=== PATIENT | male | born 1980 | race African-American/Black ===

== ENCOUNTER 2017-07-11 16:17 | Emergency (ER) | payer OTHER ==
[~2017-07-11] VITALS: Ht 180.3 cm; Wt 81.0 kg
[~2017-07-11 16:17] MED LIST: ASPI-1079 PO; CARV10CP PO; DIGO250T81 PO; ENAL5TAB PO; FURO-151 PO; KDUR10 PO; LOSA50TA20 PO; SPIR25TA PO; TRAM50TA3 PO
[2017-07-11] MEDS ORDERED: IBUPROFEN 600MG TABLET PO ONE (20:45)
[2017-07-11 21:06] VITALS: BP 132/76
== END 2017-07-11 21:11 | disposition home or self-care (01) ==
LOC: ER 18:40
DX: M54.5 Low back pain (principal); M54.2 Cervicalgia; R51 Headache; J45.909 Unspecified asthma, uncomplicated; I10 Essential (primary) hypertension; F17.210 Nicotine dependence, cigarettes, uncomplicated; V49.9XXA Car occupant (driver) (passenger) injured in unspecified traffic accident, initial encounter; Y93.89 Activity, other specified; Y92.89 Other specified places as the place of occurrence of the external cause; Y99.8 Other external cause status
CPT/HCPCS: 70450; 70486; 72100; 72125; 99284

== ENCOUNTER 2018-07-02 11:30 | Emergency (ER) | payer OTHER ==
[~2018-07-02] VITALS: Ht 180.3 cm; Wt 100.0 kg
[2018-07-02 13:13] LABS: BASOPHILS % 0.4 % (0.0-2.0); EOSINOPHILS % 3.9 % (0.0-5.0); HEMATOCRIT. 37.9 % (42.0-52.0); HEMOGLOBIN. 12.8 g/dL (14.0-18.0); LYMPHOCYTES % 25.1 % (20.0-50.0); MEAN CORPUSCULAR HEMOGLOBIN 28.1 pg (28.0-32.0); MEAN CORPUSCULAR VOLUME 83.3 fL (80.0-94.0); MONOCYTES % 10.1 % (2.0-8.0); NEUTROPHILS % 60.5 % (40.0-76.0); PLATELET 162 x1000/uL (130-400); RED BLOOD CELL COUNT 4.55 mill/uL (4.7-6.1); RED CELL DISTRIBUTION WIDTH 14.7 % (11.6-14.6)
[2018-07-02 13:20] LABS: CHLORIDE 107 mEq/L (98-107)
[2018-07-02 14:10] VITALS: BP 132/74
[2018-07-02] MEDS ORDERED: TRIAMCINOLONE ACETONIDE 0.1% CREAM 15GM TOP SCH (21:00)
== END 2018-07-02 14:12 | disposition home or self-care (01) ==
LOC: ER 11:30
DX: R07.89 Other chest pain (principal); R21 Rash and other nonspecific skin eruption; R06.02 Shortness of breath; I50.9 Heart failure, unspecified; J45.909 Unspecified asthma, uncomplicated; F12.10 Cannabis abuse, uncomplicated; R03.0 Elevated blood-pressure reading, without diagnosis of hypertension; Z86.73 Personal history of transient ischemic attack (TIA), and cerebral infarction without residual deficits; Z87.891 Personal history of nicotine dependence; Z79.82 Long term (current) use of aspirin
CPT/HCPCS: 36415; 71045; 80053; 83880; 84484; 85025; 93005; 99285

== ENCOUNTER 2019-09-09 16:26 | Emergency (ER) | payer MEDICAID, OTHER ==
[~2019-09-09] VITALS: Ht 180.3 cm; Wt 90.0 kg
[~2019-09-09 16:26] MED LIST changes: -LOSA50TA20 PO; +LOSA50TA41 PO
[2019-09-09] MEDS ORDERED: KETOROLAC 30MG/ML VIAL IV STA (17:37)
[2019-09-09 17:57] LABS: BASOPHILS % 0.4 % (0.0-2.0); EOSINOPHILS % 2.3 % (0.0-5.0); HEMATOCRIT. 43.2 % (42.0-52.0); HEMOGLOBIN. 14.3 g/dL (14.0-18.0); LYMPHOCYTES % 28.6 % (20.0-50.0); MEAN CORPUSCULAR VOLUME 84.4 fL (80.0-94.0); MONOCYTES % 9.6 % (2.0-8.0); NEUTROPHILS % 59.1 % (40.0-76.0); PLATELET 202 x1000/uL (130-400); RED BLOOD CELL COUNT 5.12 mill/uL (4.7-6.1); RED CELL DISTRIBUTION WIDTH 14.3 % (11.6-14.6)
[2019-09-09 18:03] LABS: CHLORIDE 106 mEq/L (98-107)
[2019-09-09 21:11] VITALS: BP 119/72
== END 2019-09-09 21:33 | disposition home or self-care (01) ==
LOC: ER 16:26
DX: R07.81 Pleurodynia (principal); J45.909 Unspecified asthma, uncomplicated; I50.9 Heart failure, unspecified; F12.10 Cannabis abuse, uncomplicated; F17.210 Nicotine dependence, cigarettes, uncomplicated; Z79.82 Long term (current) use of aspirin; Z86.73 Personal history of transient ischemic attack (TIA), and cerebral infarction without residual deficits; Z71.6 Tobacco abuse counseling; Z95.810 Presence of automatic (implantable) cardiac defibrillator; V03.10XA Pedestrian on foot injured in collision with car, pick-up truck or van in traffic accident, initial encounter; Y93.89 Activity, other specified; Y92.488 Other paved roadways as the place of occurrence of the external cause
CPT/HCPCS: 36415; 71111; 80053; 80307; 80329; 83690; 84484; 85025; 93005; 96374; 99284; 99406; J1885

== ENCOUNTER 2020-10-17 09:40 | Emergency (ER) | payer MEDICAID ==
[~2020-10-17] VITALS: Ht 180.3 cm; Wt 90.0 kg
[~2020-10-17 09:40] MED LIST changes: +DIGO250T79 PO; -DIGO250T81 PO
[2020-10-17] MEDS ORDERED: FLUORESCEIN SODIUM 1MG/STRIP LEFTEYE ONE (10:00)
[2020-10-17] MEDS ORDERED: TETRACAINE 0.5% OPHTH DROPS 4ML LEFTEYE ONE (10:00)
[2020-10-17 10:55] VITALS: BP 149/98
== END 2020-10-17 10:55 | disposition home or self-care (01) ==
LOC: ER 09:40
DX: S05.02XA Injury of conjunctiva and corneal abrasion without foreign body, left eye, initial encounter (principal); X58.XXXA Exposure to other specified factors, initial encounter; Y93.89 Activity, other specified; Y92.89 Other specified places as the place of occurrence of the external cause; I11.0 Hypertensive heart disease with heart failure; I50.9 Heart failure, unspecified
CPT/HCPCS: 99283

== ENCOUNTER 2021-03-01 23:52 | Emergency (ER) | payer MEDICAID, OTHER ==
[~2021-03-01] VITALS: Ht 180.3 cm; Wt 91.0 kg
[~2021-03-01 23:52] MED LIST changes: -ENAL5TAB PO; +ENAL5TAB21 PO
[2021-03-02 00:02] VITALS: BP 158/104
== END 2021-03-02 00:37 | disposition home or self-care (01) ==
LOC: ER 23:52
DX: T16.2XXA Foreign body in left ear, initial encounter (principal); I50.9 Heart failure, unspecified; F12.10 Cannabis abuse, uncomplicated; Z95.0 Presence of cardiac pacemaker; Z79.82 Long term (current) use of aspirin; X58.XXXA Exposure to other specified factors, initial encounter; Y93.89 Activity, other specified; Y92.017 Garden or yard in single-family (private) house as the place of occurrence of the external cause
CPT/HCPCS: 99281

== ENCOUNTER 2021-11-05 07:03 | Emergency (ER) | payer MEDICAID, OTHER ==
[~2021-11-05] VITALS: Ht 180.3 cm; Wt 89.0 kg
[~2021-11-05 07:03] MED LIST changes: -KDUR10 PO; +POTA-189 PO
[2021-11-05] MEDS ORDERED: KETOROLAC 30MG/ML VIAL IV STA (07:34)
[2021-11-05] MEDS ORDERED: METOCLOPRAMIDE HCL 10MG/2ML VIAL IV ONE (07:45)
[2021-11-05] MEDS ORDERED: SODIUM CHLORIDE 0.9% 1,000 ML IV ONE (07:45)
[2021-11-05] MEDS ORDERED: METO-293 PO (11:09)
[2021-11-05] MEDS ORDERED: IBUP-2030 PO (11:09)
[2021-11-05 11:39] VITALS: BP 126/81
== END 2021-11-05 11:50 | disposition home or self-care (01) ==
LOC: ER 07:40
DX: R51.9 Headache, unspecified (principal); M79.605 Pain in left leg; F12.10 Cannabis abuse, uncomplicated; I50.9 Heart failure, unspecified; Z79.899 Other long term (current) drug therapy
CPT/HCPCS: 93971; 96361; 96374; 96375; 99284; J1885; J2765; J7030

== ENCOUNTER 2022-05-31 20:45 | Emergency (ER) | payer MEDICAID ==
[~2022-05-31] VITALS: Ht 180.3 cm; Wt 82.0 kg
[~2022-05-31 20:45] MED LIST changes: +IBUP-2030 PO; +METO-293 PO
[2022-05-31 20:53] VITALS: BP 133/93
== END 2022-06-01 01:32 | disposition left against medical advice (07) ==
LOC: ER 20:45
DX: Z53.21 Procedure and treatment not carried out due to patient leaving prior to being seen by health care provider (principal)

== ENCOUNTER 2022-08-26 02:29 | Emergency (ER) | payer MEDICAID, OTHER ==
[~2022-08-26] VITALS: Ht 180.3 cm; Wt 93.0 kg
[2022-08-26] MEDS ORDERED: MORPHINE SULFATE 2 MG/ML CPJ (NOT FOR IM USE) IV ONE (03:15)
[2022-08-26 03:55] LABS: BASOPHILS % 0.5 % (0.0-2.0); EOSINOPHILS % 1.3 % (0.0-5.0); HEMATOCRIT. 46.9 % (42.0-52.0); HEMOGLOBIN. 15.6 g/dL (14.0-18.0); MEAN CORPUSCULAR HEMOGLOBIN 28.1 pg (28.0-32.0); MEAN CORPUSCULAR VOLUME 84.6 fL (80.0-94.0); MEAN PLATELET VOLUME 9.5 fl (7.4-10.4); MONOCYTES % 3.9 % (2.0-8.0); NEUTROPHILS % 73.3 % (40.0-76.0); PLATELET 215 x1000/uL (130-400); RED BLOOD CELL COUNT 5.54 mill/uL (4.7-6.1); RED CELL DISTRIBUTION WIDTH 14.9 % (11.6-14.6)
[2022-08-26 04:07] LABS: CHLORIDE 108 mEq/L (98-107)
[2022-08-26 04:13] LABS: PROTHROMBIN TIME 10.5 sec (9.6-11.0)
[2022-08-26] MEDS ORDERED: IBUP-2028 MT (05:38)
[2022-08-26 06:00] VITALS: BP 110/73
== END 2022-08-26 06:51 | disposition home or self-care (01) ==
LOC: ER 02:29
DX: M25.571 Pain in right ankle and joints of right foot (principal); I11.0 Hypertensive heart disease with heart failure; I50.9 Heart failure, unspecified; Z95.0 Presence of cardiac pacemaker; F12.10 Cannabis abuse, uncomplicated; Z79.899 Other long term (current) drug therapy
CPT/HCPCS: 36415; 71045; 72170; 73590; 73610; 73630; 80053; 85025; 85610; 96374; 99284; J2270

== ENCOUNTER 2022-10-19 10:39 | Emergency (ER) | payer OTHER ==
[~2022-10-19] VITALS: Ht 180.3 cm; Wt 87.0 kg
[~2022-10-19 10:39] MED LIST changes: +IBUP-2028 MT
[2022-10-19 13:15] VITALS: BP 128/83
[2022-10-19] MEDS ORDERED: SODIUM CHLORIDE 0.9% 1,000 ML IV ONE (13:45)
[2022-10-19 14:32] LABS: BASOPHILS % 0.5 % (0.0-2.0); EOSINOPHILS % 3.5 % (0.0-5.0); LYMPHOCYTES % 28.7 % (20.0-50.0); MEAN CORPUSCULAR HEMOGLOBIN 27.7 pg (28.0-32.0); MEAN CORPUSCULAR VOLUME 84.8 fL (80.0-94.0); MEAN PLATELET VOLUME 9.1 fl (7.4-10.4); MONOCYTES % 9.5 % (2.0-8.0); NEUTROPHILS % 57.8 % (40.0-76.0); PLATELET 227 x1000/uL (130-400); RED BLOOD CELL COUNT 5.07 mill/uL (4.7-6.1)
[2022-10-19 14:40] LABS: PARTIAL THROMBOPLASTIN TIME 33.2 sec (23.4-31.0); PROTHROMBIN TIME 10.5 sec (9.6-11.0)
[2022-10-19 14:45] LABS: CHLORIDE 109 mEq/L (98-107)
== END 2022-10-19 17:25 | disposition home or self-care (01) ==
LOC: ER 10:39
DX: R04.0 Epistaxis (principal); I11.0 Hypertensive heart disease with heart failure; I50.9 Heart failure, unspecified; Z95.0 Presence of cardiac pacemaker; F12.10 Cannabis abuse, uncomplicated; Z79.899 Other long term (current) drug therapy
CPT/HCPCS: 36415; 71045; 80053; 83880; 84484; 85025; 85610; 85730; 86850; 86900; 86901; 93005; 96360; 99285; J7030

== ENCOUNTER 2023-12-06 09:17 | Emergency (ER) | payer OTHER ==
[~2023-12-06] VITALS: Ht 180.3 cm; Wt 93.0 kg
[~2023-12-06 09:17] MED LIST changes: +ENAL-75 PO; -ENAL5TAB21 PO
[2023-12-06 09:23] VITALS: O2SAT 99
[2023-12-06] MEDS ORDERED: HYDROCODONE/ACETAMINOPHEN 5/325MG TABLET PO ONE (12:15)
[2023-12-06] MEDS ORDERED: T3 PO (12:24)
[2023-12-06 13:54] VITALS: BP 119/78; PULSE 98; RESP 18; TEMP 98.7
== END 2023-12-06 13:55 | disposition home or self-care (01) ==
LOC: ER 09:17
DX: M79.672 Pain in left foot (principal); M25.522 Pain in left elbow; M25.572 Pain in left ankle and joints of left foot; F12.10 Cannabis abuse, uncomplicated; I11.0 Hypertensive heart disease with heart failure; I50.9 Heart failure, unspecified; Z68.28 Body mass index [BMI] 28.0-28.9, adult; Z79.82 Long term (current) use of aspirin; V18.0XXA Pedal cycle driver injured in noncollision transport accident in nontraffic accident, initial encounter; Y93.89 Activity, other specified; Y92.89 Other specified places as the place of occurrence of the external cause; Y99.8 Other external cause status
CPT/HCPCS: 73502; 73070; 73562; 73630; 29515; 99284; Z7610